=== PATIENT | female | born 1950 | race Caucasian/White ===

== ENCOUNTER 2018-05-31 05:25 | Inpatient (IN) | payer OTHER, MEDICAID ==
[~2018-05-31] VITALS: Ht 152.4 cm; Wt 87.1 kg
[2018-05-31] MEDS ORDERED: DIPHENHYDRAMINE 50MG/ML VIAL IV ONE (06:30)
[2018-05-31] MEDS ORDERED: PROCHLORPERAZINE 10MG/2ML VIAL IV ONE (06:30)
[2018-05-31 07:20] LABS: BASOPHILS % 0.2 % (0.0-2.0); EOSINOPHILS % 5.7 % (0.0-5.0); HEMATOCRIT. 43.2 % (36.0-48.0); HEMOGLOBIN. 14.5 g/dL (12.0-16.0); LYMPHOCYTES % 33.2 % (20.0-50.0); MEAN CORPUSCULAR HEMOGLOBIN 30.1 pg (28.0-32.0); MEAN CORPUSCULAR VOLUME 89.9 fL (81.0-99.0); MEAN PLATELET VOLUME 8.9 fl (7.4-10.4); MONOCYTES % 8.2 % (2.0-8.0); NEUTROPHILS % 52.7 % (40.0-76.0); PLATELET 180 x1000/uL (130-400); RED CELL DISTRIBUTION WIDTH 13.6 % (11.6-14.6)
[2018-05-31 07:25] LABS: CHLORIDE 108 mEq/L (98-107)
[2018-05-31 08:17] LABS: CLARITY URINE CLEAR (CLEAR); COLOR URINE YELLOW (YELLOW); KETONES URINE NEGATIVE (NEGATIVE); LEUKOCYTE ESTERASE URINE TRACE (NEGATIVE); NITRITE URINE NEGATIVE (NEGATIVE); OCCULT BLOOD URINE NEGATIVE (NEGATIVE); PH URINE 6.5 (4.5-8.0); PROTEIN URINE NEGATIVE (NEGATIVE); SPECIFIC GRAVITY URINE 1.007 (1.005-1.030); UROBILINOGEN URINE 0.2 E.U./dL (0.2-1.0)
[2018-05-31] MEDS ORDERED: SODIUM CHLORIDE 0.9% 1,000 ML IV ONE (10:57)
[2018-05-31] MEDS ORDERED: KETOROLAC 30MG/ML VIAL IV STA (10:57)
[2018-05-31 14:20] VITALS: BP 145/83
[2018-05-31] MEDS ORDERED: ATOR40TA70 PO (15:25)
[2018-05-31] MEDS ORDERED: TROS20TA3 PO (15:25)
[2018-05-31] MEDS ORDERED: NIFE30TA83 PO (15:25)
[2018-05-31] MEDS ORDERED: FAMO-135 PO (15:25)
[2018-05-31] MEDS ORDERED: CIPR500S3 PO (15:25)
[2018-05-31] MEDS ORDERED: LOSA50TA20 PO (15:25)
[2018-05-31] MEDS ORDERED: LEVO50TA8 PO (15:25)
[2018-05-31] MEDS ORDERED: METF-815 PO (15:41)
[2018-05-31 16:29] VITALS: BP 114/64
[2018-05-31] MEDS ORDERED: DEXTROSE 50% WATER 50ML SYRINGE IV PRN (17:15)
[2018-05-31] MEDS ORDERED: ACETAMINOPHEN 325MG TABLET PO PRN (17:15)
[2018-05-31] MEDS ORDERED: CLONIDINE 0.1MG TABLET PO PRN (17:15)
[2018-05-31] MEDS ORDERED: HYDROCODONE/ACETAMINOPHEN 5/325MG TABLET PO PRN (17:15)
[2018-05-31] MEDS ORDERED: KETOROLAC 30MG/ML VIAL IV PRN (17:15)
[2018-05-31] MEDS: BLOOD SUGAR DIAGNOSTIC STRIP TEST SCH ×2 (17:40→21:00)
[2018-05-31] MEDS: INSULIN LISPRO 100 UNITS/ML SUBCUT SCH ×2 (18:10→21:00)
[2018-05-31] MEDS: SUMATRIPTAN SUCCINATE 6MG/0.5ML VIAL SUBCUT NR ×2 (18:19→18:53)
[2018-05-31 20:00] VITALS: BP 132/76
[2018-06-01] VITALS (7 sets, daily range): BP systolic 108–135; BP diastolic 54–74
[2018-06-01] MEDS: BLOOD SUGAR DIAGNOSTIC STRIP TEST SCH ×2 (06:13→12:40)
[2018-06-01 06:41] LABS: BASOPHILS % 0.2 % (0.0-2.0); EOSINOPHILS % 3.1 % (0.0-5.0); HEMOGLOBIN. 13.8 g/dL (12.0-16.0); LYMPHOCYTES % 34.5 % (20.0-50.0); MEAN CORPUSCULAR HEMOGLOBIN 30.1 pg (28.0-32.0); MEAN CORPUSCULAR VOLUME 89.4 fL (81.0-99.0); MEAN PLATELET VOLUME 8.9 fl (7.4-10.4); MONOCYTES % 8.3 % (2.0-8.0); NEUTROPHILS % 53.9 % (40.0-76.0); PLATELET 165 x1000/uL (130-400); RED BLOOD CELL COUNT 4.58 mill/uL (4.2-5.4); RED CELL DISTRIBUTION WIDTH 13.8 % (11.6-14.6)
[2018-06-01 07:37] LABS: CHLORIDE 110 mEq/L (98-107)
[2018-06-01] MEDS: INSULIN LISPRO 100 UNITS/ML SUBCUT SCH ×2 (08:10→13:10)
[2018-06-01 08:42] LABS: CREATINE KINASE MB FRACTION 1.3 ng/mL (0.5-3.6)
[2018-06-01] MEDS ORDERED: POTASSIUM CHLORIDE 20MEQ TABLET SR PO SCH (14:00)
== END 2018-06-01 17:55 | disposition home or self-care (01) | DRG 74 ==
LOC: ER 05:25 → 7WST 08:34 → EDBEDREQTM 08:35 → EDBEDREQ 08:35 → ENRESERV 11:55
PROVIDERS: ADMIT Internal Medicine; ATTEND Internal Medicine
DX: G90.8 Other disorders of autonomic nervous system (principal); E66.9 Obesity, unspecified; I10 Essential (primary) hypertension; E87.8 Other disorders of electrolyte and fluid balance, not elsewhere classified; E05.90 Thyrotoxicosis, unspecified without thyrotoxic crisis or storm; E11.9 Type 2 diabetes mellitus without complications; R51 Headache; W18.39XA Other fall on same level, initial encounter; Y93.89 Activity, other specified; Y92.89 Other specified places as the place of occurrence of the external cause; Y99.8 Other external cause status; Z90.710 Acquired absence of both cervix and uterus; Z68.37 Body mass index [BMI] 37.0-37.9, adult
CPT/HCPCS: 36415; 70551; 71045; 80048; 80061; 82550; 82553; 82962; 83880; 84443; 84484; 93005; 93306; 96361; 96374; 96375; 99285; J0780; J1200; J1885; J3030; J7030

== ENCOUNTER 2023-12-23 13:37 | Emergency (ER) | payer OTHER, MEDICAID ==
[~2023-12-23] VITALS: Ht 167.6 cm; Wt 95.0 kg
[~2023-12-23 13:37] MED LIST: ATOR40TA70 PO; CIPR500S3 PO; FAMO-135 PO; LEVO50TA8 PO; LOSA50TA41 PO; METF-873 PO; NIFE-33 PO; TROS20TA3 PO
[2023-12-23 13:40] VITALS: TEMP 98; O2SAT 100
[2023-12-23] MEDS: CYCLOBENZAPRINE 10MG TABLET PO ONE (14:15)
[2023-12-23] MEDS ORDERED: CYCL10TA21 MT (15:11)
[2023-12-23 15:47] VITALS: BP 143/73; PULSE 64; RESP 20
== END 2023-12-23 15:49 | disposition home or self-care (01) ==
LOC: ER 13:37
DX: S16.1XXA Strain of muscle, fascia and tendon at neck level, initial encounter (principal); I10 Essential (primary) hypertension; E11.9 Type 2 diabetes mellitus without complications; Z79.899 Other long term (current) drug therapy; V49.9XXA Car occupant (driver) (passenger) injured in unspecified traffic accident, initial encounter; Z86.39 Personal history of other endocrine, nutritional and metabolic disease; Y93.89 Activity, other specified; Y92.89 Other specified places as the place of occurrence of the external cause; Y99.8 Other external cause status
CPT/HCPCS: 72040; 99283